=== PATIENT | female | born 1970 | race Caucasian/White ===

== ENCOUNTER 2020-04-13 19:00 | Emergency (ER) | payer OTHER ==
[2020-04-13] MEDS ORDERED: Ondansetron 4 MG/2 ML SDV IVPUSH ONE (19:14)
[2020-04-13] MEDS ORDERED: methylPREDNISolone Sodium Succinate 125 MG/2 ML SDV IVPUSH ONE (19:14)
[2020-04-13] MEDS ORDERED: diphenhydrAMINE 50 MG/ML SDV IVPUSH ONE (19:15)
[2020-04-13] MEDS ORDERED: EPINEPHrine 1 MG/ML SDV SUBCUT ONE (19:15)
[2020-04-13] MEDS ORDERED: Sodium Chloride 0.9% 1,000 ML IV SCH (19:15)
--- NOTE | 2020-04-13 19:21 | EDM.PDOC ---
ED HPI GENERAL MEDICAL PROBLEM - General Chief Complaint: Bite:Animal, Insect Stated Complaint: BEE STING Time Seen by Provider: 04/13/20 19:16 Source of Information: Reports: Patient History Limitations: Reports: No Limitations - History of Present Illness INITIAL COMMENTS - FREE TEXT/NARRATIVE: pt arrived with history of having a bee sting on the left ankle about 5 pm. About 45 minutes later she began to feel liteheaded and dizzy. She then began to have a fine rash break out on her back and chest and she began to itch all over. Onset: Today, Sudden Duration: Hour(s): Location: Reports: Lower Extremity, Left Associated Symptoms: Reports: Nausea/Vomiting, Other ( total body itching. ) Generalized Pain Score (Numeric/FACES): 4 - Related Data Allergies Allergy/AdvReac Type Severity Reaction Status Date / Time No Known Allergies Allergy Verified 04/13/20 19:07 Home Meds: Home Meds Citalopram [Citalopram HBr] 20 mg PO DAILY 04/13/20 [History] Past Medical History HEENT History: Reports: Impaired Vision [employer]IST History: Reports: , Spontaneous - Infectious Disease History Infectious Disease History: Reports: Chicken Pox Social & Family History - Tobacco Use Smoking Status *Q: Never Smoker Second Hand Smoke Exposure: No - Caffeine Use Caffeine Use: Reports: None - Recreational Drug Use Recreational Drug Use: No ED ROS GENERAL - Review of Systems Review Of Systems: See Below Constitutional: Reports: Other (pt is feeling dizzy. ) HEENT: Reports: No Symptoms Respiratory: Reports: No Symptoms Cardiovascular: Reports: No Symptoms Endocrine: Reports: No Symptoms GI/Abdominal: Reports: Nausea Musculoskeletal: Reports: No Symptoms Skin: Reports: Rash Neurological: Reports: Other ( dizzy. ) ED EXAM, ANIMAL BITE - Physical Exam Exam: See Below Text/Narrative:: pt arrived with dizziness and itching all over. She developed a fine rash on her back and buttock area. Exam Limited By: No Limitations General Appearance: Alert, Anxious, Mild Distress Ears: Normal TMs Nose: Normal Inspection Throat/Mouth: Normal Inspection Head: Atraumatic Neck: Normal Inspection Respiratory/Chest: No Respiratory Distress Cardiovascular: Regular Rate, Rhythm, Tachycardia GI/Abdominal: Soft, Non-Tender (Female) Exam: Deferred Rectal (Female) Exam: Deferred Back Exam: Normal Inspection Extremities: Normal Inspection, Other (pt had a bee sting on the left ankle area. ) Neurological: Alert, Oriented, Normal Cognition Psychiatric: Anxious Course - Vital Signs Last Recorded V/S: Last Vital Signs Temp 36.2 C 04/13/20 19:11 Pulse 85 04/13/20 20:25 Resp 19 04/13/20 20:25 BP 116/65 04/13/20 20:25 Pulse Ox 100 04/13/20 20:25 - Orders/Labs/Meds Meds: Medications Discontinued Medications Generic Name Dose Route Start Last Admin Trade Name Freq PRN Reason Stop Dose Admin Diphenhydramine HCl 25 mg 04/13/20 19:15 04/13/20 19:43 Benadryl IVPUSH 04/13/20 19:16 25 mg ONETIME ONE Administration Epinephrine HCl 0.2 mg 04/13/20 19:15 04/13/20 19:30 Adrenalin SUBCUT 04/13/20 19:16 0.2 mg ONETIME ONE Administration Sodium Chloride 1,000 mls @ 999 mls/hr 04/13/20 19:15 04/13/20 19:53 Normal Saline IV 999 mls/hr ASDIRECTED JAN Administration Methylprednisolone Sodium Succinate 125 mg 04/13/20 19:14 04/13/20 19:43 Solu-Medrol IVPUSH 04/13/20 19:15 125 mg ONETIME ONE Administration Ondansetron HCl 4 mg 04/13/20 19:14 04/13/20 19:43 Zofran IVPUSH 04/13/20 19:15 4 mg ONETIME ONE Administration - Re-Assessments/Exams Free Text/Narrative Re-Assessment/Exam: 04/13/20 20:32 pt was given solumedrol and benadryl iv. She received epinephine .2 subq . She was given 500 to 750 of fluids. She is feeling much better. Departure - Departure Time of Disposition: 20:34 Disposition: Home, Self-Care 01 Condition: Fair Clinical Impression: Anaphylactic reaction - Discharge Information Instructions: Anaphylactic Reaction, Adult Referrals: PCP,None [Primary Care Provider] - Forms: ED Department Discharge Care Plan Goals: Pt had a generalized reaction to a bee sting on the left ankle. epipen use after a bee sting in the field as directed. benadryl 50mg at bedtime. Sepsis Event Note (ED) - Evaluation Sepsis Screening Result: No Definite Risk
== END 2020-04-13 20:57 | disposition home or self-care (01) ==
LOC: JP.ED 19:00
DX: T63.441A Toxic effect of venom of bees, accidental (unintentional), initial encounter (principal); T78.2XXA Anaphylactic shock, unspecified, initial encounter; R00.0 Tachycardia, unspecified; Z79.899 Other long term (current) drug therapy
CPT/HCPCS: 96361; 96372; 96374; 96375; 99283; J0171; J1200; J2405; J2930; J7030; 99284